=== PATIENT | male | born 1995 | race Caucasian/White ===

== ENCOUNTER → 2017-10-09 14:20 | Outpatient (CLI) | payer OTHER, SELFPAY ==
--- NOTE | 2017-10-13 10:47 | ONE_ITS ---
DATE OF SERVICE: October 09, 2017 CHIEF COMPLAINT: Left hand and wrist pain (right hand dominant). ASSESSMENT: Left wrist pain. PLAN: MMI. More than 50% of this visit spent in the planning and coordination of care. Plan of care reviewed with patient who verbalized understanding and agreement. EMPLOYER: [employer] SUBJECTIVE: Juancho presents for follow-up of left hand and wrist pain. Current pain =0/10. Full strength has returned as has fine motor movement. Site is sensitive only when Juancho bumps it hard against an object then he will wear the wrist splint to ease his discomfort. Feeling in his pinky finger is different than the others. He notices an occasional twitch or spasm of the pinky finger. No longer self-medicating with ibuprofen. REVIEW OF SYSTEMS: Denies headache or visual changes. Denies chest pain or palpitations. Denies shortness of breath or dyspnea. Denies GI or distress. PAST MEDICAL HISTORY: Chemical exposure right eye. MEDICATIONS: None. ALLERGIES: No known drug allergies. SOCIAL: ETOH: None. Tobacco: One pack per day. Exercise: Two times per week. Single. Education: High school graduate. OBJECTIVE: GENERAL: 22-year-old white male. Alert, oriented x3. Presents without left wrist splint in place. LEFT WRIST: Skin pink and dry. Ecchymosis no longer evident over the fourth metacarpal. Full flexion and extension of all phalanges without discomfort or difficulty. No discomfort with palpation of phalanges or metacarpals. EDUCATION: Encouraged to incorporate wrist and phalanges ROM into daily routine.
== END ==
PROVIDERS: PCP Pediatrics; Visit Provider Nurse Practitioner Family
DX: M25.532 Pain in left wrist (principal)
CPT/HCPCS: 99214

== ENCOUNTER 2017-11-11 17:51 | Emergency (ER) | payer OTHER, SELFPAY ==
[2017-11-11 17:54] VITALS: BP 133/72; PULSE 90; RESP 16; TEMP 36.7; O2SAT 100
--- NOTE | 2017-11-11 18:05 | DI.RAD_ITS ---
SYMPTOM/DIAGNOSIS: CRUSH INJURY RIGHT FOOT: Three views. No priors. No bone or joint abnormality is identified. The soft tissues are unremarkable. IMPRESSION: No acute abnormality.
--- NOTE | 2017-11-11 18:06 | W.ED.GENAD ---
Discharge Plan Disposition Patient Disposition: HOME Condition: Fair Discharge Details Chief Complaint: Orthopedic Clinical Impression: Crush injury of toe Primary Care Provider: Oleg Smith ED Provider: Kristan Melendez Home Meds and New Rx's Prescriptions: No Action No Known Home Meds RF: 0 Discharge Instructions Instructions: Foot Contusion (ED) Additional Instructions: Encourage rest, ice, elevation. Tylenol and/or ibuprofen as needed for discomfort. You may take 1000 mg of Tylenol every 6 hours and 600 mg of ibuprofen every 6 hours. Continue with postoccipital pain persists. If you need to wear close toed shoes please wear very supportive shoes as this will help with her discomfort. Please follow-up with primary care in 1 week if pain persists. If you develop fever/chills, increased pain, difficulty in bleeding or other new/worsening symptoms please seek care urgently once again Stand Alone Forms: Work Release Referrals: Oleg Smith MD [Primary Care Provider] - ([phone]) Discharge Data Discharge Date/Time-TO BE ENTERED AT DEPARTURE: 11/11/17 19:25 Medical Decision Making MDM Narrative Medical decision making narrative: Patient presents today with chief complaint of crush injury to the right great toe. On exam, ecchymosis noted around the nail and just proximal to this. No palpable deformity noted. He does have some swelling about the great toe. Will obtain imaging to evaluate for possible fracture. Patient has not taken anything as of yet today for his discomfort. Will give Tylenol and ibuprofen. Patient is currently elevating and icing the affected area X-ray reviewed by radiologist. Advise normal 3 view image of the patient's right foot. Discussed these findings with the patient. He reports that the Tylenol and ibuprofen to help with his discomfort. We did discuss the risk/benefits of trephination of the nail. At this point, will hold off on this procedure. Patient will be placed in a postoperative shoe to help with discomfort associated with ambulation. Patient has been ambulating with an antalgic gait. Encouraged rest, ice, elevation. Tylenol and/or ibuprofen as needed for discomfort. Advised follow-up with primary care symptoms persist over the next week. We discussed new/worsening symptoms once he care urgently once again. All his questions and concerns were addressed and he is in agreement with this plan [facility] - General Adult General Mode of arrival: ambulatory. Date/Time Provider Initiated Documentation: 11/11/17 17:59. Limitations to Documentation: no limitations. Information obtained by: patient and family. HPI Narrative: Patient is a 22-year-old male presenting today with chief complaint of right great toe pain. He reports that yesterday, while at work, he dropped a 200-300lb mold cover on his right great toe when he and another co-worker were attempting to lift this. Denies other injury at the time of the incident. Pain radiates up the mid medial foot. Denies any altered sensation. No opening in the skin. Noted ecchymosis and discomfort over the great toenail Related Data Home Medications Medication Instructions Recorded Confirmed Unknown [No Known Home Meds] 12/26/16 11/11/17 Allergies Allergy/AdvReac Type Severity Reaction Status Date / Time No Known Allergies Allergy Unverified 11/11/17 17:57 General Stated Complaint: Orthopedic TRISTIN: 4 Review of Systems Constitutional Reports as per HPI, Denies chills and Denies fever(s) Respiratory Denies cough Musculoskeletal Reports as per HPI and Reports abnormal gait (Ambulating with antalgic gait) Integumentary/Breasts Reports as per HPI Neurologic Reports as per HPI and Reports abnormal gait (Ambulating with antalgic gait) [facility] Social History Smoking/Tobacco Use Status: Current every day Exam Const General: cooperative, healthy appearing, comfortable and no acute distress Nutritional Appearance: average body habitus Orientation: alert and awake Resp Effort & Inspection: normal respiratory effort, able to speak in complete sentences and no respiratory distress Cardio Rate: regular rate Rhythm: regular rhythm Skin General skin exam: ecchymosis (Ecchymosis is noted in the foot the great toenail as well as just proximal to this. No erythema, opening the skin. No discharge.) Neuro General: alert and awake Cognition: normal cognition Speech: speech normal Gait: antalgic Extrem General: abnormal to inspection (Exam of the right Great toe is significant for ecchymosis under the nail as above. Is not particularly dark there appear to have a large amount of blood collected. Ecchymosis extends just proximal to this. Capillary refill and sensation is intact. Patient does endorse pain migrating proximal to ), no pedal edema and no calf tenderness Psych Appearance: grossly normal and well kempt Mental Status: mental status grossly normal Speech and Movement: speech and movement normal Course Vital Signs Temperature 36.7 C 11/11/17 17:54 Pulse 90 11/11/17 17:54 Respiratory Rate 16 11/11/17 17:54 Blood Pressure 133/72 11/11/17 17:54 Pulse Oximetry 100 11/11/17 17:54 Temperature 36.7 C 11/11/17 17:54 Pulse 90 11/11/17 17:54 Respiratory Rate 16 11/11/17 17:54 Blood Pressure 133/72 11/11/17 17:54 Pulse Oximetry 100 11/11/17 17:54
[2017-11-11] MEDS: Acetaminophen 500 MG TAB 1000 MG PO (18:30)
[2017-11-11] MEDS: Ibuprofen 400 MG TAB PO (18:30)
--- NOTE | 2017-11-11 18:54 | DI.VRAD_ITS ---
EXAM: XR Right Foot Complete, 3 or more Views EXAM DATE/TIME: 11/11/2017 6:07 PM CLINICAL HISTORY: 22 years old, male; Signs and symptoms; Other: Crush injury right great toe TECHNIQUE: XR Right foot 3 or more views. COMPARISON: No relevant prior studies available. FINDINGS: Bones/joints: Normal. Soft tissues: Normal. IMPRESSION: Normal three-view evaluation of the right foot. Dictated and Authenticated by: Oleg Colindres MD. Ordering:GABBI YANEZ MD
== END 2017-11-11 19:25 | disposition home or self-care (01) ==
PROVIDERS: Emergency Provider Physician Assistant; PCP Pediatrics
DX: S97.111A Crushing injury of right great toe, initial encounter (principal); S90.111A Contusion of right great toe without damage to nail, initial encounter; W20.8XXA Other cause of strike by thrown, projected or falling object, initial encounter; Y99.0 Civilian activity done for income or pay
CPT/HCPCS: 29515; 99283; 99284; 73630; 99282

== ENCOUNTER 2018-01-30 10:12 | Emergency (ER) | payer SELFPAY ==
[2018-01-30 10:25] VITALS: BP 141/71; PULSE 81; RESP 18; TEMP 36.7; O2SAT 98
--- NOTE | 2018-01-30 10:45 | W.ED.GENAD ---
Discharge Plan Disposition Patient Disposition: HOME Condition: Stable Discharge Details Chief Complaint: RespSymp Clinical Impression: URI (upper respiratory infection) Primary Care Provider: Oleg Smith ED Provider: Vamshi Easton Home Meds and New Rx's Prescriptions: New benzonatate 200 mg capsule 200 mg PO TID PRN (Reason: cough) Qty: 30 RF: 0 Discharge Instructions Instructions: Upper Respiratory Infection (ED) Additional Instructions: During viral illness please get plenty of rest and stay well-hydrated. You may use [id number] cough and cold medication such as Robitussin-DM, Tylenol cold and flu severe, or other symptomatic medications just take as directed on packaging. Feel free to return to the emergency department for any new or significant worsening of symptoms including return of fever, persistent vomiting, worsening chest pain or shortness of breath. Otherwise follow-up with your primary care provider as needed for reassessment Stand Alone Forms: Work Release Referrals: Oleg Smith MD [Primary Care Provider] - (As needed for reassessment or if not improving over the next week) Medical Decision Making Patient presenting to the emergency department for chief complaint of cough nasal congestion and protests of emesis for the last 3 days. He states a coworker has had similar symptoms. Patient states he is concerned about the flu . Patient denies any fever chills, states he has not taken any medications, is otherwise healthy. Physical exam shows clear lung cummings, nasal congestion, mild oropharynx erythema and mild cervical lymphadenopathy otherwise unremarkable examination. I feel that patient has viral upper respiratory tract infection and I did discuss with patient influenza testing which given 3 days of symptoms he would not qualify for Tamiflu so I recommended against flu testing which she agreed with after understanding that it would not change the current treatment. Patient given a work note for the next couple days and encouraged to return for any new or significant worsening symptoms. After discussion of diagnosis and plan of care patient has no further needs, questions, or concerns and states clear understanding to return to the emergency department for any worsening symptoms. HPI General Mode of arrival: ambulatory. Date/Time Provider Initiated Documentation: 01/30/18 10:21. Limitations to Documentation: no limitations. Information obtained by: patient and RN notes reviewed. History of Present Illness 22 year old M presents to the emergency department with the chief complaint of cough cold symptoms, described as moderate, with intensity rated at 3. Quality is described as aching, and is localized to the face. Patient started experiencing this day(s) (3) and it has been constant. No relieving factors improve symptom(s), No exacerbating factors reported . Patient did receive the following treatments prior to arrival, none Related Data Home Medications Medication Instructions Recorded Confirmed benzonatate 200 mg PO TID PRN #30 cap 01/30/18 Previous Rx's Medication Instructions Recorded benzonatate 200 mg PO TID PRN #30 cap 01/30/18 Allergies Allergy/AdvReac Type Severity Reaction Status Date / Time No Known Allergies Allergy Unverified 01/30/18 10:28 General Stated Complaint: RespSymp TRISTIN: 3 Review of Systems Constitutional Denies chills, Reports fatigue, Denies fever(s), Denies headache(s) and Reports malaise ENT Denies otalgia, Denies headache(s), Reports nasal congestion, Reports nasal discharge, Reports sinus pressure, Reports sore throat and Denies throat swelling Cardiovascular Denies chest pain and Denies dyspnea Respiratory Reports cough, Denies dyspnea and Denies wheezing Gastrointestinal Reports diarrhea (x 2 yesterday) and Reports vomiting (with coughing ) Musculoskeletal Denies joint swelling Integumentary/Breasts Denies rash Neurologic Denies headache(s) Endocrine Reports fatigue Allergic/Immunologic Denies throat swelling and Denies wheezing [facility] Social History Smoking/Tobacco Use Status: Current every day Social History Smoking/Tobacco Use Status: Current every day Exam Const General: cooperative, comfortable and no acute distress Orientation: alert, awake and oriented x3 HENMT Head: normal to inspection and normocephalic Ears: hearing grossly normal bilaterally, external ears normal and TM's normal bilaterally Face and sinus: normal facial exam and sinuses nontender Mouth: oral mucosae normal Throat: abnormal tonsil bilaterally erythema (mild) Eyes General: appearance normal, both eyes and all related structures Conjunctivae: conjunctivae normal Sclera: sclerae normal Neck Neck: normal visual inspection, full ROM, meningismus present, lymphadenopathy (Mild anterior cervical) and no JVD Resp Effort & Inspection: normal respiratory effort, able to speak in complete sentences, no audible wheezes and not labored Auscultation: clear to auscultation bilaterally Cardio Rate: regular rate Rhythm: regular rhythm Heart Sounds: S1 normal and S2 normal Skin General skin exam: no rashes or lesions noted and dry skin Rashes: no rashes Neuro General: alert, awake, oriented x3 and gait normal Course Vital Signs Temperature 36.7 C 01/30/18 10:25 Pulse 81 01/30/18 10:25 Respiratory Rate 18 01/30/18 10:25 Blood Pressure 141/71 H 01/30/18 10:25 Pulse Oximetry 98 01/30/18 10:25 Temperature 36.7 C 01/30/18 10:25 Temperature Source Skin 01/30/18 10:25 Pulse 81 01/30/18 10:25 Respiratory Rate 18 01/30/18 10:25 Respiratory Effort 01/30/18 10:28 Respiratory Depth Normal 01/30/18 10:28 Blood Pressure 141/71 H 01/30/18 10:25 Blood Pressure Position Sitting 01/30/18 10:25 Pulse Oximetry 98 01/30/18 10:25 Oxygen Delivery Method Room Air 01/30/18 10:25 Oxygen Flow Rate 0 01/30/18 10:25 Pain Level 3 01/30/18 10:25
--- NOTE | 2018-01-30 10:48 | ED.GENADUL_ITS ---
Discharge Plan Disposition Patient Disposition: HOME Condition: Stable Discharge Details Chief Complaint: RespSymp Clinical Impression: URI (upper respiratory infection) Primary Care Provider: Oleg Smith ED Provider: Vamshi Easton Home Meds and New Rx's Prescriptions: New benzonatate 200 mg capsule 200 mg PO TID PRN (Reason: cough) Qty: 30 RF: 0 Discharge Instructions Instructions: Upper Respiratory Infection (ED) Additional Instructions: During viral illness please get plenty of rest and stay well-hydrated. You may use [id number] cough and cold medication such as Robitussin-DM, Tylenol cold and flu severe, or other symptomatic medications just take as directed on packaging. Feel free to return to the emergency department for any new or significant worsening of symptoms including return of fever, persistent vomiting , worsening chest pain or shortness of breath. Otherwise follow-up with your primary care provider as needed for reassessment Stand Alone Forms: Work Release Referrals: Oleg Smith MD [Primary Care Provider] - (As needed for reassessment or if not improving over the next week) Medical Decision Making Patient presenting to the emergency department for chief complaint of cough nasal congestion and protests of emesis for the last 3 days. He states a coworker has had similar symptoms. Patient states he is concerned about the flu . Patient denies any fever chills, states he has not taken any medications, is otherwise healthy. Physical exam shows clear lung cummings, nasal congestion, mild oropharynx erythema and mild cervical lymphadenopathy otherwise unremarkable examination. I feel that patient has viral upper respiratory tract infection and I did discuss with patient influenza testing which given 3 days of symptoms he would not qualify for Tamiflu so I recommended against flu testing which she agreed with after understanding that it would not change the current treatment. Patient given a work note for the next couple days and encouraged to return for any new or significant worsening symptoms. After discussion of diagnosis and plan of care patient has no further needs, questions, or concerns and states clear understanding to return to the emergency department for any worsening symptoms. HPI General Mode of arrival: ambulatory . Date/Time Provider Initiated Documentation: 01/30/18 10:21 . Limitations to Documentation: no limitations . Information obtained by: patient and RN notes reviewed . History of Present Illness 22 year old M presents to the emergency department with the chief complaint of cough cold symptoms, described as moderate, with intensity rated at 3. Quality is described as aching, and is localized to the face. Patient started experiencing this day(s) (3) and it has been constant. No relieving factors improve symptom(s), No exacerbating factors reported . Patient did receive the following treatments prior to arrival, none Related Data Home Medications Medication Instructions Recorded Confirmed benzonatate 200 mg PO TID PRN #30 cap 01/30/18 Previous Rx's Medication Instructions Recorded benzonatate 200 mg PO TID PRN #30 cap 01/30/18 Allergies Allergy/AdvReac Type Severity Reaction Status Date / Time No Known Allergies Allergy Unverified 01/30/18 10:28 General Stated Complaint: RespSymp TRISTIN: 3 Review of Systems Constitutional Denies chills, Reports fatigue, Denies fever(s), Denies headache(s) and Reports malaise ENT Denies otalgia, Denies headache(s), Reports nasal congestion, Reports nasal discharge, Reports sinus pressure, Reports sore throat and Denies throat swelling Cardiovascular Denies chest pain and Denies dyspnea Respiratory Reports cough, Denies dyspnea and Denies wheezing Gastrointestinal Reports diarrhea (x 2 yesterday) and Reports vomiting (with coughing ) Musculoskeletal Denies joint swelling Integumentary/Breasts Denies rash Neurologic Denies headache(s) Endocrine Reports fatigue Allergic/Immunologic Denies throat swelling and Denies wheezing [facility] Social History Smoking/Tobacco Use Status: Current every day Social History Smoking/Tobacco Use Status: Current every day Exam Const General: cooperative, comfortable and no acute distress Orientation: alert, awake and oriented x3 HENMT Head: normal to inspection and normocephalic Ears: hearing grossly normal bilaterally, external ears normal and TM's normal bilaterally Face and sinus: normal facial exam and sinuses nontender Mouth: oral mucosae normal Throat: abnormal tonsil bilaterally erythema (mild) Eyes General: appearance normal, both eyes and all related structures Conjunctivae: conjunctivae normal Sclera: sclerae normal Neck Neck: normal visual inspection, full ROM, meningismus present, lymphadenopathy ( Mild anterior cervical) and no JVD Resp Effort & Inspection: normal respiratory effort, able to speak in complete sentences, no audible wheezes and not labored Auscultation: clear to auscultation bilaterally Cardio Rate: regular rate Rhythm: regular rhythm Heart Sounds: S1 normal and S2 normal Skin General skin exam: no rashes or lesions noted and dry skin Rashes: no rashes Neuro General: alert, awake, oriented x3 and gait normal Course Vital Signs Temperature 36.7 C 01/30/18 10:25 Pulse 81 01/30/18 10:25 Respiratory Rate 18 01/30/18 10:25 Blood Pressure 141/71 H 01/30/18 10:25 Pulse Oximetry 98 01/30/18 10:25 Temperature 36.7 C 01/30/18 10:25 Temperature Source Skin 01/30/18 10:25 Pulse 81 01/30/18 10:25 Respiratory Rate 18 01/30/18 10:25 Respiratory Effort 01/30/18 10:28 Respiratory Depth Normal 01/30/18 10:28 Blood Pressure 141/71 H 01/30/18 10:25 Blood Pressure Position Sitting 01/30/18 10:25 Pulse Oximetry 98 01/30/18 10:25 Oxygen Delivery Method Room Air 01/30/18 10:25 Oxygen Flow Rate 0 01/30/18 10:25 Pain Level 3 01/30/18 10:25
== END 2018-01-30 11:05 | disposition home or self-care (01) ==
LOC: ER 11:05
PROVIDERS: Emergency Provider Nurse Practitioner Family; PCP Pediatrics
DX: J06.9 Acute upper respiratory infection, unspecified (principal)
CPT/HCPCS: 99283

== ENCOUNTER 2018-02-11 16:39 | Emergency (ER) | payer SELFPAY ==
[2018-02-11 16:46] VITALS: BP 142/69; PULSE 90; RESP 16; TEMP 36.6; O2SAT 99
--- NOTE | 2018-02-11 18:14 | DI.RAD_ITS ---
SYMPTOM/DIAGNOSIS: POST SHOULDER PAIN, REP MOTION AT WORK, NO TRAUMA LEFT SHOULDER: Multiple views. No bone or joint abnormality is identified. IMPRESSION: Negative examination.
--- NOTE | 2018-02-11 19:07 | ED.GENADUL_ITS ---
Discharge Plan Disposition Patient Disposition: HOME Condition: Stable Discharge Details Chief Complaint: Orthopedic Clinical Impression: Left shoulder pain Reason For Visit: left shoulder Primary Care Provider: Oleg Smith ED Provider: No Fowler Discharge Instructions Instructions: Shoulder Pain (ED) Additional Instructions: Please return immediately to the emergency department if you develop any new or worsening symptoms or if you become otherwise concerned. It is extremely important that you make an appointment to be seen by your primary care doctor within the next 1-2 weeks and follow-up for this visit. 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 He has had 3 weeks of posterior shoulder pain worsened by performing his usual tasks at work, has been in PT for this. Was sent to ED by his work for shoulder xray to r/o bony process so that he may continue PT. No acute worsening of symptoms. Pt very well and non-toxic appearin on exam, with post shoulder TTP and no other TTP of the LUE. LUE NVI. FROM. Exam/hx not c/w septic joint, ACS, other acute life threatening process. Plan for xray. Xray okay. No indication for further intervention. I had a lengthy discussion with the Pt re: RTED precautions and importance of outpt f/u with PCP, cont PT. Pt verbalizes understanding of plan. Medical Records Medical records reviewed: Yes I reviewed the patient's medical records. Imaging Data Radiologic Study: Attestation: I personally reviewed and interpreted this imaging study as follows: Radiologist's impression: LEFT SHOULDER: Multiple views. No bone or joint abnormality is identified. IMPRESSION: Negative examination. HPI General Mode of arrival: ambulatory . Date/Time Provider Initiated Documentation: 02/11/18 17:01 . Limitations to Documentation: no limitations . Information obtained by: patient, RN notes reviewed and old records reviewed . HPI Narrative: Amira Acevedo is a 22-year-old man without history of major medical problems presenting to the emergency department shoulder pain. 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 Patient reports that he has had 3 weeks of left-sided shoulder pain that is present only while he is lifting heavy objects with his left arm. He otherwise does not have pain. He has been in physical therapy for the pain, and was sent to the emergency department today by his work for rule out bony process if he is to continue physical therapy. Patient reports that there was no sudden onset of pain and no trauma. Pain is at the posterior aspect of his shoulder. He is currently pain-free and not experiencing any symptoms. He has not taken pain medication for this. He denies weakness, numbness, tingling, skin changes or rash, any other pain. He has been eating and drinking normally and feels otherwise in his usual state of health. Related Data Allergies Allergy/AdvReac Type Severity Reaction Status Date / Time No Known Allergies Allergy Unverified 02/11/18 16:50 General Stated Complaint: Orthopedic TRISTIN: 4 Review of Systems Review of Systems Constitutional: denies fevers Eyes: denies eye pain ENT: denies facial pain, dental pain, sore throat Cardiovascular: denies chest pain, edema Respiratory: denies SOB, cough GI: denies abdominal pain, vomiting, diarrhea : denies flank pain MSK: denies back pain, neck pain, myalgias, reports left shoulder pain and no other athralgias Skin: denies rash Neuro: denies headaches, lightheadedness, weakness PFSH Social History Smoking/Tobacco Use Status: Current every day Exam Narrative Exam Narrative: Constitutional: well and [id number], pleasant, conversing normally HENT: head atraumatic, normocephalic normal inspection, mucous membranes moist Eyes: conjunctiva normal, sclera normal, pupils 3mm b/l Neck: no stridor, normal ROM, trachea midline Chest: normal inspection Resp: normal work of breathing, LCTAB Cardio: normal rate, normal rhythm, no murmur appreciated Back: normal inspection, no rash Skin: warm, dry, normal color, no rash Neuro: alert, not altered, grossly non-focal, normal tone Ext: no edema, left shoulder with mild TTP over posterior shoulder joint, no scapular TTP, no clavicular TTP, no other TTP of shoulder or humerus. Radial pulses intact and symmetric. FROM left shoulder. Psych: normal mood, normal affect, normal behavior Course Vital Signs Temperature 36.6 C 02/11/18 16:46 Pulse 90 02/11/18 16:46 Respiratory Rate 16 02/11/18 16:46 Blood Pressure 142/69 H 02/11/18 16:46 Pulse Oximetry 99 02/11/18 16:46 Temperature 36.6 C 02/11/18 16:46 Temperature Source Temporal Artery Scan 02/11/18 16:46 Pulse 90 02/11/18 16:46 Respiratory Rate 16 02/11/18 16:46 Respiratory Effort 02/11/18 16:50 Blood Pressure 142/69 H 02/11/18 16:46 Blood Pressure Position Sitting 02/11/18 16:46 Pulse Oximetry 99 02/11/18 16:46 Oxygen Delivery Method Room Air 02/11/18 16:46 Oxygen Flow Rate 0 02/11/18 16:46 Pain Level 4 02/11/18 16:46
--- NOTE | 2018-02-11 19:10 | DI.VRAD_ITS ---
EXAM: XR Left Shoulder Complete, 2 or More Views EXAM DATE/TIME: 02/11/2018 6:45 PM CLINICAL HISTORY: 22 years old, male; Pain; Shoulder; Left; Patient HX: Pain in l shoulder, 3 weeks per PT TECHNIQUE: XR Left shoulder complete 2 or more views. COMPARISON: No relevant prior studies available. FINDINGS: Bones/joints: Normal. No fracture or subluxation. Soft tissues: Normal. IMPRESSION: No acute findings. Dictated and Authenticated by: Wilmar Barragan MD. Ordering:VANE SANTOS MD
== END 2018-02-11 19:33 | disposition home or self-care (01) ==
PROVIDERS: Emergency Provider Student in an Organized Health Care Education/Training Program; PCP Pediatrics
DX: M25.512 Pain in left shoulder (principal); X50.3XXA Overexertion from repetitive movements, initial encounter; Y99.0 Civilian activity done for income or pay
CPT/HCPCS: 99283; 73030

== ENCOUNTER 2018-06-04 10:57 | Emergency (ER) | payer SELFPAY ==
[2018-06-04] VITALS (31 sets, daily range): BP systolic 127–158; BP diastolic 58–87; PULSE 65–130; RESP 14–35; TEMP 37.1–37.2; O2SAT 97–100
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
[2018-06-04] MEDS: LORazepam 2 MG/ML VIAL (11:16)
--- NOTE | 2018-06-04 11:16 | DI.CT_ITS ---
SYMPTOMS/DIAGNOSIS: CHEST PAIN, SOB PE CHEST CT: CT angiography was performed with multi slice acquisition and multi planar and 3D reconstruction. PE CT of the chest was carried out with intravenous administration of 61 cc's of Omnipaque 350. The pulmonary arteries are well opacified and there is no evidence of pulmonary embolic disease. The lungs are free of infiltrate. There is no pleural effusion. The heart is not enlarged. There is nothing to suggest right heart strain. There is no evidence of an aortic aneurysm. SUMMARY: Negative PE CT.
[2018-06-04] MEDS: Lactated Ringers 1,000 ML 1000 ML IV ×2 (11:18→13:30)
[2018-06-04 11:48] LABS: Abs Immature Grans 0.01 k/cumm (0.0-0.09); Absolute Basophil Count 0.02 k/cumm (0.0-0.2); Absolute Eosinophil Count 0.03 k/cumm (0.0-0.7); Absolute Lymphocyte Count 1.86 k/cumm (1.2-3.4); Absolute Monocyte Count 0.77 k/cumm (0.11-0.7); Absolute Neutrophil Count 4.42 k/cumm (1.2-6.7); Basophils % 0.3; Eosinophils % 0.4; HCT 48.3 % (40.0-50.0); Immature Grans % 0.1; Lymphocytes % 26.2; Mean Corp. HGB Concentration 35.2 g/dL (32.0-36.0); Mean Corpuscular Hemoglobin 31.8 pg (27.0-33.0); Mean Corpuscular Volume 90.4 fL (80-95); Mean Platelet Volume 10.1 fL (8.0-11.0); Monocytes % 10.8; Neutrophils % 62.2; Platelet Count 309 x1000/uL (130-400); RBC 5.34 m/cumm (4.50-6.00); RBC Distribution Width 12.2 % (11.8-14.1); White Blood Cell Count 7.11 k/cumm (4.4-10.8)
[2018-06-04] MEDS: Omnipaque 350 MG/ML 100 ML BTL IJ ×2 (11:49→12:21)
[2018-06-04 11:56] LABS: Anion Gap 17.5 mmol/L (3-11); BUN 7 mg/dL (7-18); CO2 21.5 mmol/L (21.0-32.0); CREATININE 1.05 mg/dL (0.70-1.30); Chloride 102 mmol/L (98-107); Glucose 121 mg/dL (70-100); Potassium 3.6 mmol/L (3.5-5.1); Sodium 141 mmol/L (136-145)
[2018-06-04 11:59] LABS: Troponin I < 0.02 ng/mL (0.00-0.06)
[2018-06-04 14:24] LABS: Anion Gap 10.3 mmol/L (3-11); BUN 5 mg/dL (7-18); CO2 26.7 mmol/L (21.0-32.0); CREATININE 0.79 mg/dL (0.70-1.30); Calcium 8.9 mg/dL (8.5-10.1); Chloride 104 mmol/L (98-107); Glucose 130 mg/dL (70-100); Potassium 3.8 mmol/L (3.5-5.1); Sodium 141 mmol/L (136-145); Troponin I < 0.02 ng/mL (0.00-0.06)
[2018-06-04 14:30] LABS: TSH (W/Ref FT4) 1.33 uIU/mL (0.358-3.74)
--- NOTE | 2018-06-05 09:00 | PDOC.ERCMPRO ---
Care Management Progress Note 06/05-Dr. Butler requested assistance with a PCP (Luis) f/u in 1-2 weeks for chest pain and anxiety. Referral faxed to [facility] this am.
== END 2018-06-04 14:59 | disposition home or self-care (01) ==
PROVIDERS: Emergency Provider Emergency Medicine; PCP Pediatrics
DX: F41.9 Anxiety disorder, unspecified (principal); F17.210 Nicotine dependence, cigarettes, uncomplicated
CPT/HCPCS: 36415; 71275; 80048; 93005; 96360; 99285; 84443; 84484; 85025; 93010; J2060; J3490

== ENCOUNTER 2020-09-08 10:08 | Outpatient (CLI) | payer OTHER, SELFPAY ==
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
== END 2020-09-08 10:09 | disposition home or self-care (01) ==
LOC: DIORS 10:09
PROVIDERS: Visit Provider Physician Assistant
DX: S62.633A Displaced fracture of distal phalanx of left middle finger, initial encounter for closed fracture (principal); X58.XXXA Exposure to other specified factors, initial encounter
CPT/HCPCS: 73140

== ENCOUNTER 2020-11-17 04:00 | Emergency (ER) | payer SELFPAY ==
[2020-11-17] VITALS (15 sets, daily range): BP systolic 108–141; BP diastolic 46–76; PULSE 66–108; RESP 16–18; TEMP 36.5–36.6; O2SAT 94–99
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
[2020-11-17] MEDS: Ketorolac 30 MG/ML VIAL IVP (04:17)
[2020-11-17] MEDS: Tetracaine 0.5% 4 ML BTL (04:17)
[2020-11-17] MEDS: Fluorescein STRIPS 100/BOX 1 MG (04:18)
--- NOTE | 2020-11-17 05:44 | NUR.NOTE ---
Nursing Note: Patient made aware of transfer to [facility] ED for specialty care.
== END 2020-11-17 06:15 ==
PROVIDERS: Emergency Provider Emergency Medicine
DX: T26.01XA Burn of right eyelid and periocular area, initial encounter (principal); T26.02XA Burn of left eyelid and periocular area, initial encounter; T20.19XA Burn of first degree of multiple sites of head, face, and neck, initial encounter; T21.11XA Burn of first degree of chest wall, initial encounter; H53.8 Other visual disturbances; X12.XXXA Contact with other hot fluids, initial encounter
CPT/HCPCS: 16000; 96374; 99281; J1885